=== PATIENT | female | born 1985 | race American Indian/Alaskan Native ===

== ENCOUNTER 2016-12-24 12:56 | Inpatient (IN) | payer SELFPAY ==
[2016-12-24 15:13] LABS: Basophils % (Auto) 0.7 % (0.0-1.8); Eosinophils % (Auto) 0.1 % (0.0-4.3); Mean Corpuscular HGB Conc 29 % (30-34); Red Blood Count 3.55 M/mm3 (3.65-5.03); Red Cell Distribution Width 19.3 % (13.2-15.2); White Blood Count 4.5 K/mm3 (4.5-11.0)
[2016-12-24 15:14] LABS: Hematocrit 24.5 % (30.3-42.9); Hemoglobin 7.1 gm/dl (10.1-14.3); Mean Corpuscular Hemoglobin 20 pg (28-32); Mean Corpuscular Volume 69 fl (79-97)
[2016-12-24 15:15] LABS: Anion Gap 17 mmol/L; Blood Urea Nitrogen 12 mg/dL (7-17); Calcium 8.6 mg/dL (8.4-10.2); Carbon Dioxide 20 mmol/L (22-30); Chloride 105.8 mmol/L (98-107); Glucose 83 mg/dL (65-100); Platelet Count 90 K/mm3 (140-440); Sodium 139 mmol/L (137-145)
[2016-12-24] MEDS ORDERED: ZOFRAN IV ONE (20:53)
[2016-12-24] MEDS ORDERED: MORPHINE IV ONE (20:53)
[2016-12-24] MEDS ORDERED: NACL 0.9% 500 ML 500 ML IV ONE (20:53)
--- NOTE | 2016-12-24 20:58 | Emergency Department Report ---
ED Chest Pain HPI - General Chief Complaint: Chest Pain Stated Complaint: CHEST PAIN/ANXIETY Time Seen by Provider: 12/24/16 20:31 Source: patient Mode of arrival: Ambulatory Limitations: No Limitations - History of Present Illness Initial Comments: 31-year-old female with past medical history iron deficiency anemia presents to the hospital complaints of chest pain shortness of breath started while at work at 11:30 AM. Patient states she was standing and was not exerting himself when she began to breathe heavily and complain of sharp shooting at the mid chest pain that is moderate in intensity. Pain is intermittent and worse with palpation, inspiration, and movement. Positive associated shortness of breath and nausea. No diaphoresis, vomiting, calf tenderness, control pill use, PE/DVT, recent travel, or unilateral edema. Patient has a history of iron deficiency anemia but is noncompliant with iron tablets. Denies melena or hematochezia at this time. Patient has required a blood transfusion in the past last 2-3 years ago. PMD: None - Related Data Home Medications Medication Instructions Recorded Confirmed Last Taken No Known Home Medications [No 12/24/16 12/24/16 Unknown Reported Home Medications] Allergies Allergy/AdvReac Type Severity Reaction Status Date / Time No Known Allergies Allergy Verified 12/24/16 14:28 DARRYL score - Darryl Score Age > 65: (0) No Aspirin use within the Past 7 Days: (0) No 3 or more CAD Risk Factors: (0) No 2 or more Angina events in past 24 hrs: (0) No Known CAD with more than 50% Stenosis: (0) No Elevated Cardiac Markers: (0) No ST Deviation Greater than 0.5mm: (0) No DARRYL Score: 0 ED Review of Systems ROS: Stated complaint: CHEST PAIN/ANXIETY Other details as noted in HPI Comment: All other systems reviewed and negative Other: Constitutional: No fevers chills Eyes: No eye pain visual changes or discharge ENT: No ear pain or throat pain Neck: Denies pain Respiratory: as per hpi Cardiovascular: Denies palpitations, syncope GI: Denies abdominal pain, nausea, vomiting, diarrhea : Denies dysuria, urinary frequency, or urgency Musculoskeletal: Denies back pain Skin: Denies rash, lesions, erythema Neurologic: Denies headache, numbness, weakness ED Past Medical Hx - Past Medical History Previous Medical History?: No - Surgical History Past Surgical History?: Yes Additional Surgical History: D&C - Social History Smoking Status: Current Every Day Smoker Substance Use Type: None - Medications Home Medications: Home Medications Medication Instructions Recorded Confirmed Last Taken Type No Known Home Medications [No 12/24/16 12/24/16 Unknown History Reported Home Medications] ED Physical Exam - General Limitations: No Limitations - Other Other exam information: General: No limitations, patient is alert in no acute distress Head exam: Atraumatic, normocephalic Eyes exam: Normal appearance ENT: Moist mucous membrane, normal oropharynx Neck exam: Normal inspection, full range of motion, no meningismus nontender Respiratory exam: Clear to auscultation bilateral, no wheezes, rales, crackles. Reproducible sternal chest wall tenderness Cardiovascular: Normal rate and rhythm, normal heart sounds Abdomen: Soft, nondistended, and nontender, with normal bowel sounds, no rebound, or guarding Rectal: Guaiac-negative brown stool Extremity: Full range of motion normal inspection no deformity, no calf tenderness Back: Normal Inspection, full range of motion, no tenderness Neurologic: Alert, oriented x3, cranial nerves intact, no motor or sensory deficit Psychiatric: normal affect, normal mood Skin: Warm, dry, intact ED Course Vital Signs 12/24/16 12/24/16 14:24 21:11 Temperature 97.9 F 98.0 F Pulse Rate 73 66 Respiratory 16 18 Rate Blood Pressure 120/68 Blood Pressure 127/68 [Right] O2 Sat by Pulse 100 100 Oximetry - Reevaluation(s) Reevaluation #1: 12/24/16 22:11 1 unit of PRBC ordered. Patient received morphine and Zofran for pain in the ED ED Medical Decision Making - Lab Data Result diagrams: 12/24/16 14:41 12/24/16 14:41 Lab Results 12/24/16 12/24/16 12/24/16 Range/Units 14:41 14:41 19:46 WBC 4.5 (4.5-11.0) K/mm3 RBC 3.55 L (3.65-5.03) M/mm3 Hgb 7.1 L (10.1-14.3) gm/dl Hct 24.5 L (30.3-42.9) % MCV 69 L (79-97) fl MCH 20 L (28-32) pg MCHC 29 L (30-34) % RDW 19.3 H (13.2-15.2) % Plt Count 90 L (140-440) K/mm3 Lymph % (Auto) 27.5 (13.4-35.0) % [place] % (Auto) 7.2 (0.0-7.3) % Eos % (Auto) 0.1 (0.0-4.3) % Baso % (Auto) 0.7 (0.0-1.8) % Lymph # 1.2 (1.2-5.4) K/mm3 [place] # 0.3 (0.0-0.8) K/mm3 Eos # 0.0 (0.0-0.4) K/mm3 Baso # 0.0 (0.0-0.1) K/mm3 Seg Neutrophils % 64.5 (40.0-70.0) % Seg Neutrophils # 2.9 (1.8-7.7) K/mm3 PT (12.2-14.9) Sec. INR (0.87-1.13) APTT (24.2-36.6) Sec. Sodium 139 (137-145) mmol/L Potassium 4.0 (3.6-5.0) mmol/L Chloride 105.8 (98-107) mmol/L Carbon Dioxide 20 L (22-30) mmol/L Anion Gap 17 mmol/L BUN 12 (7-17) mg/dL Creatinine 0.6 L (0.7-1.2) mg/dL Estimated GFR > 60 ml/min BUN/Creatinine Ratio 20.00 % Glucose 83 (65-100) mg/dL Calcium 8.6 (8.4-10.2) mg/dL Iron (37-170) ug/dL TIBC (250-450) mcg/dL % Saturation % Transferrin (192-382) mg/dl Troponin T < 0.010 < 0.010 (0.00-0.029) ng/mL 12/24/16 12/24/16 12/24/16 Range/Units 19:46 21:09 21:09 WBC (4.5-11.0) K/mm3 RBC (3.65-5.03) M/mm3 Hgb (10.1-14.3) gm/dl Hct (30.3-42.9) % MCV (79-97) fl MCH (28-32) pg MCHC (30-34) % RDW (13.2-15.2) % Plt Count (140-440) K/mm3 Lymph % (Auto) (13.4-35.0) % [place] % (Auto) (0.0-7.3) % Eos % (Auto) (0.0-4.3) % Baso % (Auto) (0.0-1.8) % Lymph # (1.2-5.4) K/mm3 [place] # (0.0-0.8) K/mm3 Eos # (0.0-0.4) K/mm3 Baso # (0.0-0.1) K/mm3 Seg Neutrophils % (40.0-70.0) % Seg Neutrophils # (1.8-7.7) K/mm3 PT 13.2 (12.2-14.9) Sec. INR 1.01 (0.87-1.13) APTT 33.8 (24.2-36.6) Sec. Sodium (137-145) mmol/L Potassium (3.6-5.0) mmol/L Chloride (98-107) mmol/L Carbon Dioxide (22-30) mmol/L Anion Gap mmol/L BUN (7-17) mg/dL Creatinine (0.7-1.2) mg/dL Estimated GFR ml/min BUN/Creatinine Ratio % Glucose (65-100) mg/dL Calcium (8.4-10.2) mg/dL Iron 21 L (37-170) ug/dL TIBC 446.60 (250-450) mcg/dL % Saturation 4.70 % Transferrin 319 (192-382) mg/dl Troponin T < 0.010 (0.00-0.029) ng/mL - EKG Data -: EKG Interpreted by Me (nsr rate 58, no stemi/t inv) - EKG Data When compared to previous EKG there are: previous EKG unavailable - Medical Decision Making Patient likely has iron deficiency anemia. Baseline known. Given symptoms will admit for blood transfusion. Patient also has thrombocytopenia. Patient denies any previous history. Denies aspirin use. I suspect the patient has costochondritis his chest pain is retrosternal, reproducible on palpation. - Differential Diagnosis costochondritis, [place], PE, unstable angina, anemia Critical Care Time: No Critical care attestation.: If time is entered above; I have spent that time in minutes in the direct care of this critically ill patient, excluding procedure time. ED Disposition Clinical Impression: Costochondritis, acute, Signs and symptoms of anemia, Thrombocytopenia Disposition: OP ADMITTED IP TO THIS HOSP Is pt being admited?: Yes Condition: Stable Time of Disposition: 20:55 (Dr Reza/hosp)
[2016-12-24 21:17] LABS: Total Iron Binding Capacity 446.6 mcg/dL (250-450)
[2016-12-24 21:50] LABS: INR 1.01 (0.87-1.13); Partial Thromboplastin Time 33.8 Sec. (24.2-36.6)
[2016-12-24] MEDS ORDERED: MORPHINE IV PRN (22:33)
[2016-12-24] MEDS ORDERED: ZOFRAN IV PRN (22:35)
[2016-12-24] MEDS ORDERED: TYLENOL PO PRN (22:36)
[2016-12-24] MEDS ORDERED: NITRO-BID 2% TP ONE (23:50)
[2016-12-24] MEDS: NITRO-BID 2% TP SCH (23:57)
[2016-12-25 01:16] LABS: Creatine Kinase 159 units/L (30-135)
--- NOTE | 2016-12-25 04:18 | History and Physical Report ---
CHIEF COMPLAINT: Chest pain. Other complaint include shortness of breath. HISTORY OF PRESENTING ILLNESS: The patient is a 31-year-old female who states she started having shortness of breath at work where she stood up and felt some sharp retrosternal pain that did not radiate. Pain was worse with breathing and movement as well as palpation. The patient was admitted to having nausea with no vomiting. There was no history of diaphoresis. No history of fever, chills or cough. The patient is on iron tablets and states she has not been compliant for taking medication which is iron prescribed because of anemia. PAST MEDICAL HISTORY: Pertinent for iron deficiency and anemia, PAST SURGICAL HISTORY: Pertinent for D and C. FAMILY HISTORY: Noncontributory. SOCIAL HISTORY: The patient smokes cigarettes, does not drink alcohol and does not use illicit drug. MEDICATION: The patient is on iron tablet. ALLERGIES: No known drug allergies. REVIEW OF SYSTEMS: CONSTITUTIONAL: She has no fever, no chills. no diaphoresis. HEENT: There is no headache or sore throat. CARDIOVASCULAR SYSTEM: Chest pain present. No orthopnea. RESPIRATORY SYSTEM: Shortness of breath present. There is no cough. GASTROINTESTINAL SYSTEM: Nausea is present with no vomiting. No abdominal pain, diarrhea or constipation. NEUROLOGICAL SYSTEM: She has no numbness, no dizziness, no altered mental status. MUSCULOSKELETAL SYSTEM: There is no joint pain or swelling. DERMATOLOGICAL SYSTEM: There is no skin rash or itching. GENITOURINARY SYSTEM: There is no dysuria, hematuria or flank pain. Rest of system review is normal. PHYSICAL EXAMINATION: GENERAL: At the time of exam, the patient was found to be alert and oriented x 3 and not in acute distress. VITAL SIGNS: Shows temperature of 98 degrees Fahrenheit, pulse of 58, respirations 20, blood pressure 110/51, O2 sat of 98% on room air. HEENT: Pupils to be equal, round and reactive to light and accommodation. Extraocular muscles are intact. The patient's sclerae looks pale. NECK: Supple with no JVD or carotid bruit. CARDIOVASCULAR: First and second heart sound with no gallops, rubs, or murmur. RESPIRATORY: Show good air entry on both sides of the lung with no abnormal breath sounds. GASTROINTESTINAL: Show abdomen to be full, soft, nontender with no organomegaly or rigidity. NEUROLOGIC: Show no focal deficit. MUSCULOSKELETAL: Show tenderness on palpation of the sternum with no joint swelling is elicited or found anyways. DERMATOLOGICAL: Show no skin rash. GENITOURINARY: Show no costovertebral angle tenderness. PERTINENT LAB AND IMAGING STUDIES: The patient with following lab test done, CBC showed normal white count with low hemoglobin of 7.1 and low hematocrit of 24.7 and low MCV of 69 and low MCHC of 29 with high RDW of 19.3. Coagulation studies were unremarkable. Chemistry shows normal sodium of 139 with normal potassium of 4.0, low CO2 of 20 with unremarkable renal function tests. The patient's iron studies showed low iron level of 21 with normal total iron binding capacity, normal percentage saturation of iron and normal transferrin level. The patient's cardiac enzyme shows normal troponin level. DIAGNOSES: 1. Symptomatic anemia. 2. Atypical chest pain. 3. Thrombocytopenia with low platelet of 90,000. PLAN: The patient will be admitted to medical floor on telemetry. We will have cardiac enzymes checked q. 6 hours x 2 more level. The patient will be on nitro paste half inch to anterior chest wall q.i.d., will be on IV morphine 2 mg every 4 hours as needed for pain and aspirin 325 mg by mouth daily. The patient will also be on Tylenol 650 mg by mouth every 4 hours as needed for fever, headache, and Zofran 4 mg IV every 6 hours for nausea and vomiting. The patient will be on oxygen by nasal cannula 2 liters per minute and will have stress test done in the morning. The patient will have blood typed and screened for Possible transfusion when hemoglobin is below 7. The patient will have CBC checked in the morning. JOB# [id number] OCN/NTS MTDD
[2016-12-25] MEDS: NITRO-BID 2% TP SCH ×3 (05:42→14:00)
[2016-12-25 09:34] LABS: Hematocrit 26.1 % (30.3-42.9); Hemoglobin 7.9 gm/dl (10.1-14.3); Mean Corpuscular HGB Conc 30 % (30-34); Mean Corpuscular Volume 71 fl (79-97); Platelet Count 100 K/mm3 (140-440); Red Blood Count 3.66 M/mm3 (3.65-5.03); White Blood Count 5.1 K/mm3 (4.5-11.0)
[2016-12-25 09:49] LABS: Mean Corpuscular Hemoglobin 22 pg (28-32); Red Cell Distribution Width 20.1 % (13.2-15.2)
[2016-12-25 09:51] LABS: Creatine Kinase MB 1.8 ng/mL (0.0-4.0)
[2016-12-25 09:52] LABS: Creatine Kinase 138 units/L (30-135)
[2016-12-25] MEDS ORDERED: ASPIRIN PO SCH (10:00)
[2016-12-25] MEDS ORDERED: LEXISCAN IV ONE (10:00)
--- NOTE | 2016-12-25 10:09 | Admit Criteria Form ---
Admission Criteria Documentation: ANEMIA, IRON DEFICIENCY OR UNSPECIFIED Clinical Indications for Inpatient Care (Place 'X' for any and all applicable criteria): Admission is indicated for ANY ONE of the following(1)(2)(3)(4)(5)(6)(7): [X] I. Inpatient admission required rather than observation care (Also use Anemia, Iron Deficiency or Unspecified: Observation Care guideline as appropriate) because of ANY ONE of the following: [] a) Hemodynamic instability that is severe or persistent [] b) Active bleeding that cannot be rapidly controlled [X] c) CVS symptoms (i.e., dyspnea, chest pain, heart failure) that are severe or persistent [] d) Neurologic symptoms (i.e., cognitive impairment, recurrent syncope or near syncope) that are severe or persistent [] e) Cardiac arrhythmias of immediate concern [] f) Acute peripheral ischemia (e.g., pulseless, cool, mottled, or cyanotic extremity) [] g) High-risk low platelet count [] h) Acute renal failure [] i) Ongoing transfusion for blood loss (greater than 2 units) [] j) IV fluid to replace significant ongoing (eg, >24 hours) losses (> 3 L/m2 per day) [] k) Pulmonary artery catheter monitoring [] l) Supplemental oxygen or respiratory treatments for over 24 hours that are performable only in acute inpatient setting [] m) Immediate inpatient surgery [] n) Other condition, treatment or monitoring requiring inpatient admission [] II Active massive hemorrhage [] III. Active hemolysis with rapidly progressive anemia [A](6) Extended stay beyond goal length of stay may be needed for (17)(18) []a) Diagnosed cause of anemia requiring longer hospitalization (eg, active GI bleeding, immune hemolysis requiring electrophoresis, complications of malignancy requiring acute care []b) Continued emergent anemia indicators (23) []c) Transfusion reactions []d) Associated leukopenia or thrombocytopenia needing inpatient care []e) Active comorbidities (eg, renal failure, heart failure) The original [facility] Care Guidelines content created by [facility] Care Guidelines has been revised. The portions of the content which have been revised are identified through the use of italic text or in bold. [facility] Guidelines has neither reviewed nor approved the modified material. All other unmodified content is copyright [facility] Care Guidelines. Please see references footnoted in the original [facility] edition 2016 Admission Criteria Met: Yes
--- NOTE | 2016-12-25 11:44 | Cat Scan Report ---
CT HEAD WITHOUT CONTRAST INDICATION: Loss of consciousness. COMPARISON: None similar. FINDINGS: Noncontrast head CT demonstrates normal ventricles and sulci without acute or recent infarct, hemorrhage, mass effect or midline shift. No abnormal extra-axial fluid collections. Slight motion artifact. Partially empty sella. Posterior fossa structures and basilar cisterns appear within normal limits. Clear imaged paranasal sinuses and mastoid air cells. Intact calvarium. Normal overlying scalp soft tissues. Few anterior maxillary dental material incidentally noted. Right more than left external auditory canal debris may be directly visualized. CONCLUSION: No acute intracranial CT abnormality, as described. Thank you for the opportunity to participate in this patient's care.
--- NOTE | 2016-12-25 13:25 | Progress Note ---
Assessment and Plan Assessment and plan: Chest pain Anemia secondary to heavy menses Syncope Thrombocytopenia - Patient's going to stress test and echo - Cardiac enzymes were negative, EKG no ST elevation - CT head - CUSTOMER [employer]ATE consult placed - We'll follow CBC Disposition - Continue inpatient care History Interval history: Patient was seen and evaluated this morning before she went for stress test, patient still has chest pain but mild. Hospitalist Physical - Physical exam Narrative exam: Not in cardiopulmonary distress. The patient appeared well nourished and normally developed. Vital signs as documented. Head exam is unremarkable. No scleral icterus . Neck is without jugular venous distension, thyromegaly, or carotid bruits. Lungs are clear to auscultation. Cardiac exam reveals regular rate and Rhythm. First and second heart sounds normal. No murmurs, rubs or gallops. Abdominal exam reveals normal bowel sounds, no masses, no organomegaly and no aortic enlargement. Extremities are nonedematous and both femoral and pedal pulses are normal. EXECUTIVE PERSONAL ASSISTANT: Alert and oriented 3. No focal weakness. - Constitutional Vitals: Temp Pulse Resp BP Pulse Ox 98.3 F 63 18 116/68 97 12/25/16 13:02 12/25/16 13:02 12/25/16 13:02 12/25/16 13:02 12/25/16 13:02 Results - Labs CBC & Chem 7: 12/25/16 09:14 12/24/16 14:41 Labs: Laboratory Last Values WBC 5.1 K/mm3 (4.5-11.0) 12/25/16 09:14 RBC 3.66 M/mm3 (3.65-5.03) 12/25/16 09:14 Hgb 7.9 gm/dl (10.1-14.3) L 12/25/16 09:14 Hct 26.1 % (30.3-42.9) L 12/25/16 09:14 MCV 71 fl (79-97) L 12/25/16 09:14 MCH 22 pg (28-32) L 12/25/16 09:14 MCHC 30 % (30-34) 12/25/16 09:14 RDW 20.1 % (13.2-15.2) H 12/25/16 09:14 Plt Count 100 K/mm3 (140-440) L 12/25/16 09:14 Lymph % (Auto) 27.5 % (13.4-35.0) 12/24/16 14:41 [place] % (Auto) 7.2 % (0.0-7.3) 12/24/16 14:41 Eos % (Auto) 0.1 % (0.0-4.3) 12/24/16 14:41 Baso % (Auto) 0.7 % (0.0-1.8) 12/24/16 14:41 Lymph # 1.2 K/mm3 (1.2-5.4) 12/24/16 14:41 [place] # 0.3 K/mm3 (0.0-0.8) 12/24/16 14:41 Eos # 0.0 K/mm3 (0.0-0.4) 12/24/16 14:41 Baso # 0.0 K/mm3 (0.0-0.1) 12/24/16 14:41 Seg Neutrophils % 64.5 % (40.0-70.0) 12/24/16 14:41 Seg Neutrophils # 2.9 K/mm3 (1.8-7.7) 12/24/16 14:41 PT 13.2 Sec. (12.2-14.9) 12/24/16 21:09 INR 1.01 (0.87-1.13) 12/24/16 21:09 APTT 33.8 Sec. (24.2-36.6) 12/24/16 21:09 Sodium 139 mmol/L (137-145) 12/24/16 14:41 Potassium 4.0 mmol/L (3.6-5.0) 12/24/16 14:41 Chloride 105.8 mmol/L (98-107) 12/24/16 14:41 Carbon Dioxide 20 mmol/L (22-30) L 12/24/16 14:41 Anion Gap 17 mmol/L 12/24/16 14:41 BUN 12 mg/dL (7-17) 12/24/16 14:41 Creatinine 0.6 mg/dL (0.7-1.2) L 12/24/16 14:41 Estimated GFR > 60 ml/min 12/24/16 14:41 BUN/Creatinine Ratio 20.00 % 12/24/16 14:41 Glucose 83 mg/dL (65-100) 12/24/16 14:41 Calcium 8.6 mg/dL (8.4-10.2) 12/24/16 14:41 Iron 21 ug/dL (37-170) L 12/24/16 19:46 TIBC 446.60 mcg/dL (250-450) 12/24/16 19:46 % Saturation 4.70 % 12/24/16 19:46 Transferrin 319 mg/dl (192-382) 12/24/16 19:46 Total Creatine Kinase 138 units/L (30-135) H 12/25/16 09:14 CK-MB (CK-2) 1.8 ng/mL (0.0-4.0) 12/25/16 09:14 CK-MB (CK-2) Rel Index 1.3 (0-4) 12/25/16 09:14 Troponin T < 0.010 ng/mL (0.00-0.029) 12/25/16 09:14 Urine HCG, Qual Negative (Negative) 12/25/16 06:47 Blood Type B POSITIVE 12/24/16 21:10 Antibody Screen TNR 12/24/16 21:10 TE Antibody Screen Negative 12/24/16 21:10 Crossmatch See Detail 12/24/16 21:10
--- NOTE | 2016-12-25 18:28 | History and Physical Report ---
History of Present Illness Date of examination: 12/25/16 Date of admission: 12/24/16 22:28 Chief complaint: consult for heavy vaginal bleeding and anemia History of present illness: July is a 31 yo LMP December 14 with known long history of menorrhagia. She began her menstruation at 10 years old and has noted to have very heavy bleeding changing pads only heavy the first 3 days then light. She has been on ocps in the past but not recent. She states that she does not have a appraiser art and no pap in years. She admits to chlamydia 8 years ago and been treated. She denies any lightheadedness nor dizziness. She used to take iron in the past but has not taken any iron the last several months. She has been hospitalzied for blood transfusions years ago. She is in a monogamous relationship. She denies any cancers in her family. FMH: DM ( father) HTN ( father) Med hx : shingle and anemia Sh: D and C for sab meds; none all : nkda Medications and Allergies Allergies Allergy/AdvReac Type Severity Reaction Status Date / Time No Known Allergies Allergy Verified 12/24/16 14:28 Home Medications Medication Instructions Recorded Confirmed Last Taken Type No Known Home Medications [No 12/24/16 12/24/16 Unknown History Reported Home Medications] Active Meds: Active Medications Acetaminophen (Tylenol) 650 mg PO Q4H PRN PRN Reason: For Pain/Fever/Headache Aspirin (Aspirin) 325 mg PO QDAY [facility] Morphine Sulfate (Morphine) 2 mg IV Q4H PRN PRN Reason: Pain, Moderate (4-6) Nitroglycerin (Nitro-Bid 2%) 0.5 inch TP QIDNTG KRISTEN PRN Reason: Protocol Last Admin: 12/25/16 14:00 Dose: Not Given Ondansetron HCl (Zofran) 4 mg IV Q6H PRN PRN Reason: Nausea And Vomiting - Vital Signs Vital signs: Vital Signs Temp Pulse Resp BP Pulse Ox 97.9 F 73 16 120/68 100 12/24/16 14:24 12/24/16 14:24 12/24/16 14:24 12/24/16 14:24 12/24/16 14:24 Temp Pulse Resp BP Pulse Ox 98.1 F 60 14 122/67 96 12/25/16 17:24 12/25/16 17:24 12/25/16 17:24 12/25/16 17:24 12/25/16 17:24 Results Result Diagrams: 12/25/16 09:14 12/24/16 14:41 Abnormal lab results 12/25/16 12/25/16 12/25/16 Range/Units 00:33 09:14 09:14 Hgb 7.9 L (10.1-14.3) gm/dl Hct 26.1 L (30.3-42.9) % MCV 71 L (79-97) fl MCH 22 L (28-32) pg RDW 20.1 H (13.2-15.2) % Plt Count 100 L (140-440) K/mm3 Total Creatine Kinase 159 H 138 H (30-135) units/L All other labs normal.
[2016-12-25] MEDS ORDERED: NACL ONE (20:35)
--- NOTE | 2016-12-26 03:24 | Treadmill Report ---
Resting images revealed homogenous radioisotope activity. After Lexiscan, the images revealed similar uptake. Gated scan revealed ejection fraction of 62%. IMPRESSION: This test is negative for ischemia. JOB# [id number] FADY/JENNIFER
[2016-12-26] MEDS: NITRO-BID 2% TP SCH (05:34)
--- NOTE | 2016-12-26 07:47 | Ultrasound Report ---
Overt ultrasound: History: Menorrhagia Endovaginal and transabdominal imaging demonstrates an anteverted uterus measuring 4.9 x 6.8 x 9 cm. There is a relatively iso-echogenic mass in the anterior myometrium measuring 4.9 cm in maximum dimension. In the right lateral uterus there is a 1.3 cm hypoechogenic mass. The endometrial thickness is 7 mm with a small amount of fluid in the lower segment. A small amount of free cul-de-sac fluid is noted. Left ovary measures 2.6 cm but is not optimally visualized. The right ovary measures 3 cm containing a 9 mm cyst. Impression: 1. Nonspecific small volume of endometrial fluid with no other finding. 2. Uterine fibroids.
[2016-12-26 08:11] VITALS: BP 117/60
--- NOTE | 2016-12-26 09:53 | Discharge Summary ---
Providers - Providers Date of Admission: 12/24/16 22:28 Date of discharge: 12/26/16 Attending physician: EMIL ANAND MD 12/25/16 11:14 Consult to Physician [CONS] Routine Consulting Provider: DEJA RYAN Reason For Exam: anemia, heavy menses with clot Place consult to:: Dr. Ryan Notified:: Thalia RN Phone number called:: Was contact made?: Yes If yes, spoke with:: Dr. Ryan Time called:: 11:58 Primary care physician: COOKING TEACHER Hospitalization Reason for admission: Chest pain, anemia Condition: Stable Pertinent studies: Cardiac stress test, vagina ultrasound Hospital course: 31-year-old AA female with medical history significant for iron deficiency anemia, heavy menses presented to the emergency department complaining of shortness of breath associated with retrosternal chest pain. Patient stated she wasn't complaint with her iron tablets. Patient stated she is experiencing heavy menses with clots of blood. She was admitted to the floor and cardiac enzymes were negative, cardiac stress test were negative, EKG normal sinus rhythm. For her anemia TUMBLE TAILSTOCK TURRET LATHE OPERATOR was consulted and vaginal ultrasound was done and it showed fibroids. I scheduled to see TUMBLE TAILST[employer] TURRET LATHE OPERATOR as an outpatient in 2 weeks. Patient was stable at the time of discharge. Patient was discharged with iron tablets. Disposition: DISCHARGED TO HOME OR SELFCARE Time spent for discharge: 31 minutes - Discharge Diagnoses (1) Costochondritis, acute Status: Acute (2) Signs and symptoms of anemia Status: Acute (3) Thrombocytopenia Status: Acute Core Measure Documentation - Palliative Care Palliative Care/ Comfort Measures: Not Applicable - Core Measures Any of the following diagnoses?: none Exam - Physical Exam Narrative exam: Not in cardiopulmonary distress. The patient appeared well nourished and normally developed. Vital signs as documented. Head exam is unremarkable. No scleral icterus . Neck is without jugular venous distension, thyromegaly, or carotid bruits. Chest reproducible chest pain. Lungs are clear to auscultation. Cardiac exam reveals regular rate and Rhythm. First and second heart sounds normal. No murmurs, rubs or gallops. Abdominal exam reveals normal bowel sounds, no masses, no organomegaly and no aortic enlargement. Extremities are nonedematous and both femoral and pedal pulses are normal. ORGANIZATIONAL DEVELOPMENT CONSULTANT: Alert and oriented 3. No focal weakness. - Constitutional Vitals: Temp Pulse Resp BP Pulse Ox 98.1 F 70 18 117/60 99 12/26/16 08:11 12/26/16 08:11 12/26/16 08:11 12/26/16 08:11 12/26/16 08:11 Plan Activity: no restrictions Weight Bearing Status: Full Weight Bearing Diet: low fat Follow up with: PRIMARY MD DANIEL [Primary Care Provider] - 3-5 Days DEJA RYAN MD [Staff Physician] - 6 Weeks Forms: Work/School Release Form Prescriptions: Ferrous Sulfate 300 mg PO BID #60 elixir
== END 2016-12-26 10:28 | disposition home or self-care (01) | DRG 206 ==
LOC: ED 12:56 → 4A 22:28
PROVIDERS: ADMIT Internal Medicine; ATTEND Internal Medicine
PROC: 30233N1 Transfusion of Nonautologous Red Blood Cells into Peripheral Vein, Percutaneous Approach (ICD-10-PCS; principal; 2016-12-24)
PROC: 4A02XM4 Measurement of Cardiac Total Activity, External Approach (ICD-10-PCS; 2016-12-24)
DX: M94.0 Chondrocostal junction syndrome [Tietze] (principal); D50.9 Iron deficiency anemia, unspecified; N93.9 Abnormal uterine and vaginal bleeding, unspecified; D69.6 Thrombocytopenia, unspecified; F17.210 Nicotine dependence, cigarettes, uncomplicated; R07.89 Other chest pain; Z91.14 Patient's other noncompliance with medication regimen; Z83.3 Family history of diabetes mellitus; Z82.49 Family history of ischemic heart disease and other diseases of the circulatory system
CPT/HCPCS: 36415; 70450; 76830; 76856; 78452; 80048; 81025; 82271; 82550; 82553; 83550; 84484; 85025; 85027; 85610; 85730; 86850; 86900; 86901; 86920; 93005; 93010; 93017; 96374; 96375; A9502; J2270; J2405; J2785; J7040; P9016